=== PATIENT | female | born 1970 | race Caucasian/White ===

== ENCOUNTER 2021-09-05 11:09 | Inpatient (IN) ==
--- NOTE | 2021-08-13 13:45 | PAT Medication Instructions ---
Medication Instructions Date of Service August 13, 2021 Home Medications aspirin 81 mg tablet,delayed release 81 mg PO QAM atorvastatin 80 mg tablet 80 mg PO HS duloxetine 60 mg capsule,delayed release (Cymbalta) 60 mg PO QAM gabapentin 400 mg tablet 400 mg PO TID lactobacillus combination no.4 3 billion cell capsule (Probiotic) 3,000 mmu cells PO QAM metoprolol tartrate 25 mg tablet 25 mg PO BID multivitamin 1 cap PO QAM mupirocin 2 % topical ointment 1 applic TOPICAL UD PRN nitroglycerin 0.4 mg sublingual tablet 0.4 mg SUBLINGUAL UD PRN omeprazole 20 mg capsule,delayed release 20 mg PO QAM sulfamethoxazole 800 mg-trimethoprim 160 mg tablet (Bactrim DS) 1 tab PO BID turmeric 400 mg capsule 500 mg PO QAM Continue as directed nitroglycerin 0.4 mg sublingual tablet 0.4 mg SUBLINGUAL UD PRN (if needed) sulfamethoxazole 800 mg-trimethoprim 160 mg tablet (Bactrim DS) 1 tab PO BID ASK your prescriber and surgeon aspirin 81 mg tablet,delayed release 81 mg PO QAM STOP taking 2 weeks before surgery (or as soon as possible if surgery is within 2 weeks) turmeric 400 mg capsule 500 mg PO QAM STOP taking 24 hours before surgery mupirocin 2 % topical ointment 1 applic TOPICAL UD PRN DO NOT take the morning of surgery lactobacillus combination no.4 3 billion cell capsule (Probiotic) 3,000 mmu cells PO QAM multivitamin 1 cap PO QAM Take morning of surgery With a small sip of water, OTHERWISE NOTHING TO EAT OR DRINK AFTER MIDNIGHT: duloxetine 60 mg capsule,delayed release (Cymbalta) 60 mg PO QAM gabapentin 400 mg tablet 400 mg PO TID metoprolol tartrate 25 mg tablet 25 mg PO BID omeprazole 20 mg capsule,delayed release 20 mg PO QAM Take evening before surgery atorvastatin 80 mg tablet 80 mg PO HS gabapentin 400 mg tablet 400 mg PO TID metoprolol tartrate 25 mg tablet 25 mg PO BID Other Notes If you have any questions please call us at [phone] or [phone] or [phone] or [phone]
--- NOTE | 2021-08-14 13:12 | Anesthesiology Consultation ---
Date of Service August 14, 2021 Assessment & Plan (1) Encounter for pre-operative examination: - cardio 08/09/21 [facility]: "...CAD (CABG x 4 MARKS to LAD, SVG-PDA, SVG to OM and SVG to diag 2011)...doing very well from a cardiac standpoint...able to walk up multiple flights of steps...no further cardiac workup necessary prior to her left shoulder surgery...to continue aspirin..." - COVID screening: Per assessment on 08/14/2021: Travel screen negative, no known COVID-19 positive contacts or current COVID-19 related symptoms in past 2 weeks. Surgeon arranging preop COVID testing, scheduled 09/03/2021. Awaiting results. Chart Review Chart Review: Acceptable Risk for Surgery and Patient seen in Pre Admission Testing Teaching & Discussion Pre-Anesthesia Teaching/Discussion Notes: Instructed NPO after midnight before surgery, except medications with 15 cc of water. Medication instructions provided according to the PAT guidelines. History Surgery Operation Date: 09/05/21 07:30 Proposed Procedures p Left Total Shoulder Arthroplasty, Biceps Tenodesis - Rosendo Kumari MD Height/Weight Height: 5 ft Weight: 90.1 kg Allergies Allergy/AdvReac Type Severity Reaction Status Date / Time Penicillins Allergy Unknown PT NOT SURE Verified 08/13/21 10:57 Medications Home Medications Medication Instructions Recorded Confirmed Last Taken aspirin 81 mg tablet,delayed 81 mg PO QAM 08/13/21 08/13/21 Unknown release atorvastatin 80 mg tablet 80 mg PO HS 08/13/21 08/13/21 Unknown duloxetine 60 mg capsule,delayed 60 mg PO QAM 08/13/21 08/13/21 Unknown release (Cymbalta) gabapentin 400 mg tablet 400 mg PO TID 08/13/21 08/13/21 Unknown lactobacillus combination no.4 3 3,000 mmu cells PO QAM 08/13/21 08/13/21 Unknown billion cell capsule (Probiotic) metoprolol tartrate 25 mg tablet 25 mg PO BID 08/13/21 08/13/21 Unknown multivitamin 1 cap PO QAM 08/13/21 08/13/21 Unknown mupirocin 2 % topical ointment 1 applic TOPICAL UD PRN 08/13/21 08/13/21 Unknown nitroglycerin 0.4 mg sublingual 0.4 mg SUBLINGUAL UD PRN 08/13/21 08/13/21 Unknown tablet omeprazole 20 mg capsule,delayed 20 mg PO QAM 08/13/21 08/13/21 Unknown release sulfamethoxazole 800 1 tab PO BID 08/13/21 08/13/21 Unknown mg-trimethoprim 160 mg tablet (Bactrim DS) turmeric 400 mg capsule 500 mg PO QAM 08/13/21 08/13/21 Unknown Past Medical History Medical History (Updated 08/14/21 @ 13:32 by Drea Aguilar PA-C) Acid reflux controlled, stable per pt Chronic pain Emphysema lung chest CT 07/02/21 Fibromyalgia Forgetfulness NO EVAL FOR THIS ISSUE History of myocardial infarction 2012...BYPASS SX Hyperlipidemia Skin infection ON FACE, CURRENTLY BEING TX WITH ABX AND OINTMENT - HEALING per pt Sleep apnea on CPAP Patient denies h/o stroke, seizures, DM, blood clots or blood transfusions. Exercise / Class Metabolic Activity II 4-5 Yardwork/Stairs/Walk up hill (denies CP or SOB with 1 FOS) Past Family History Family History Mother Family history of diabetes mellitus Grandmother Family history of diabetes mellitus Sister Family history of diabetes mellitus Aunt Family history of diabetes mellitus Past Surgical History Surgical History History of cardiac cath ID 2011 NO STENTS...BYPASS SX History of carpal tunnel release of both wrists History of colonoscopy History of quadruple bypass 2011 Past Anesthesia History No Hx of Anesthesia Complications and No Family Hx of Anesthesia Complications History of PONV No Hx of PONV and No Hx of Motion Sickness Social History Smoking Status: Former smoker tobacco type: cigarettes Do You Dip or Chew Tobacco: No Smoking End Date: 2011 Hx Alcohol Use: Yes Alcohol type: beer, wine and hard liquor alcohol intake frequency: holidays/special occasions only substance use type: marijuana Substance Use Type Other:: MARIJUANA DAILY USE (ADVISED) Last Used Substance: Hours (ago) Review of Systems Patient denies chest pain, shortness of breath, dyspnea on exertion, fever, chills, cough, wheezing, or palpitations. Physical Exam Vital Signs Vitals BP 109/71 P 65 TEMP 98.3 SP02 98% on RA RESP 17 Physical Full cervical extension range of motion without pain TMD 3.5 finger breaths Mallampati Score 2 Dentition: edentulous Lungs: normal respiratory effort. Clear throughout to auscultation, no adventitious breath sounds Cardiac: regular rate and rhythm, no murmurs noted Carotid arteries: negative bruit bilat Skin: small round healing erythematous lesion left axilla with surrounding erythema reduced in area since PCP video visit as no longer extends to lower eyelid; no active drainage or bleeding Lab Results Anesthesia Preop Results Results Anesthesia Widget: WBC 6.14 K/uL (4.8-10.8) 08/14/21 Hgb 13.7 g/dL (12.0-16.0) 08/14/21 Hct 40.2 % (37-47) 08/14/21 Plt 347 K/uL (130-400) 08/14/21 Na 137 mmol/L (136-145) 08/14/21 K 3.8 mmol/L (3.5-5.1) 08/14/21 Cl 102 mmol/L (98-107) 08/14/21 CO2 27 mmol/L (21-32) 08/14/21 BUN 13 mg/dl (6-23) 08/14/21 Creat 1.09 mg/dl (0.6-1.2) 08/14/21 Glucose Level 84 mg/dl (70-99(Fasting)) 08/14/21 PT 9.7 Seconds (9.0-12.0) 08/14/21 PTT 25.3 Seconds (21.0-31.0) 08/14/21 INR 0.9 (0.9-1.1) 08/14/21 HA1c 5.8 % (4.5-5.6) H 08/14/21 Urine Color Yellow 08/14/21 Urine Appearance Clear (Clear) 08/14/21 Urine pH 5.5 (4.5-7.5) 08/14/21 Urine Specific [place] 1.014 (1.000-1.030) 08/14/21 Urine Protein Negative (Negative) 08/14/21 Urine Glucose (UA) Negative (Negative) 08/14/21 Urine Ketones Negative (Negative) 08/14/21 Urine Blood Negative (Negative) 08/14/21 Urine Nitrite Negative (Negative) 08/14/21 Urine Bilirubin Negative (Negative) 08/14/21 Urine Urobilinogen Negative (Negative) 08/14/21 Urine Leukocyte Esterase Negative (Negative) 08/14/21 Blood Type A Negative 08/14/21 Antibody Screen NEGATIVE 08/14/21 Testing Electrocardiogram Date: 08/09/21 Sinus bradycardia, rate 55 bpm Chest X-Ray Date: 08/14/21 No acute chest disease Echocardiogram Date: 01/13/19 EF 55-60% Grade II diastolic dysfunction No regional wall motion abnormalities of LV Mild mitral valve regurgitation Other Testing Chest CT 07/02/21 4 mm solid juxtapleural nodule left upper lobe Mild emphysema Diffuse bronchial wall thickening typical of chronic bronchitis Heavy atherosclerotic calcification of the [place] coronary arteries status post multivessel CABG Healed median sternotomy Mild degenerative endplate changes in the spine
--- NOTE | 2021-09-01 08:35 | History & Physical Report ---
Date of Service September 01, 2021 Assessment & Plan (1) Primary osteoarthritis, left shoulder: Plan: Treatment options discussed with the patient. She has failed conservative measures. Recommend proceeding with surgical intervention. Risks, benefits and alternatives to surgery including but not limited to infection, DVT, pain, stiffness, need for revision surgery, damage to blood vessels, damage to nerves, PE, , were discussed with the patient and they wish to proceed. Plan for left total shoulder arthroplasty scheduled for September 05, [address] [facility] with Dr. Kumari. All questions answered. We will plan on outpatient postop. Follow-up postoperatively. History of Present Illness Chief Complaint: Left shoulder pain Primary Care Provider: Jovanny Awad PA-C 51-year-old female with past medical history significant for SC status post bypass surgery, coronary artery disease, MACK, GERD, emphysema who presents with ongoing left shoulder pain. Patient has failed conservative measures including injections and anti-inflammatories. Pain is interfering with her daily activities. She would like to proceed with surgical intervention. Patient denies headaches, sweats, fevers, chills, double vision, blurred vision, cough, sore throat, dysphagia, chest pain, sob, wheezing, n/v/d/c, numbness, tingling, fatigue, urinary symptoms, mood disorders. ROS positive for left shoulder pain and stiffness. Allergies Allergy/AdvReac Type Severity Reaction Status Date / Time Penicillins Allergy Unknown PT NOT SURE Verified 08/13/21 10:57 Home Medications Medication Instructions Recorded Confirmed Type aspirin 81 mg tablet,delayed 81 mg PO QAM 08/13/21 08/13/21 History release atorvastatin 80 mg tablet 80 mg PO HS 08/13/21 08/13/21 History duloxetine 60 mg capsule,delayed 60 mg PO QAM 08/13/21 08/13/21 History release (Cymbalta) gabapentin 400 mg tablet 400 mg PO TID 08/13/21 08/13/21 History lactobacillus combination no.4 3 3,000 mmu cells PO QAM 08/13/21 08/13/21 History billion cell capsule (Probiotic) metoprolol tartrate 25 mg tablet 25 mg PO BID 08/13/21 08/13/21 History multivitamin 1 cap PO QAM 08/13/21 08/13/21 History mupirocin 2 % topical ointment 1 applic TOPICAL UD PRN 08/13/21 08/13/21 History nitroglycerin 0.4 mg sublingual 0.4 mg SUBLINGUAL UD PRN 08/13/21 08/13/21 History tablet omeprazole 20 mg capsule,delayed 20 mg PO QAM 08/13/21 08/13/21 History release sulfamethoxazole 800 1 tab PO BID 08/13/21 08/13/21 History mg-trimethoprim 160 mg tablet (Bactrim DS) turmeric 400 mg capsule 500 mg PO QAM 08/13/21 08/13/21 History Past Med/Surg History Medical History (Updated 09/01/21 @ 08:34 by Kiran Gonzalez PA-C) Acid reflux controlled, stable per pt Chronic pain Emphysema lung chest CT 07/02/21 Fibromyalgia Forgetfulness NO EVAL FOR THIS ISSUE History of myocardial infarction 2012...BYPASS SX Hyperlipidemia Skin infection ON FACE, CURRENTLY BEING TX WITH ABX AND OINTMENT - HEALING per pt Sleep apnea on CPAP Surgical History History of cardiac cath SC 2012 NO STENTS...BYPASS SX History of carpal tunnel release of both wrists History of colonoscopy History of quadruple bypass 2011 Family History Mother Family history of diabetes mellitus Grandmother Family history of diabetes mellitus Sister Family history of diabetes mellitus Aunt Family history of diabetes mellitus Social History Smoking Status: Former smoker Hx Alcohol Use: Yes Alcohol type: beer, wine and hard liquor Preferred Language: Polish Communication Ability: Effective Steam Drier Operator Required: No Beliefs That Will Affect Care: None Current Living Situation: Spouse and Family Current Living Situation Comment: 9 TOTAL CHILDREN, GRANDCHILDREN, PETS Feels Safe at Home: Yes Assistive Devices: Denture - Upper, Denture - Lower and Glasses Review of Systems All systems reviewed & are unremarkable except as noted in HPI & below Physical Exam Constitutional: well developed and well nourished; no acute distress Eyes: PERRL, conjunctivae normal, anicteric sclerae ENMT: external ear and nose normal, oropharynx normal Neck: trachea midline, no thyromegaly Respiratory: normal respiratory effort, lungs clear to auscultation Cardiovascular: RRR, no murmur, no edema Musculoskeletal: Left shoulder: Tenderness anterior glenoid and biceps. There is crepitation noted. She has positive impingement signs, positive cross body test. Active abduction to 170 degrees, forward flexion to 170 degrees, external rotation is 60 degrees. Pain and weakness with strength testing. Skin: no rashes, warm and dry Neurologic: patellar DTR's 2+ bilat, sensation intact Psychiatric: A+Ox3, euthymic affect Results & Data ([facility]) Diagnostic Findings Left shoulder radiographs demonstrate significant joint space narrowing glenohumeral joint with complete loss of joint space inferior glenohumeral joint. Her MRI demonstrates grade 4 osteoarthritis inferior glenohumeral joint, subchondral cystic changes in the glenoid. Rotator cuff is intact.
[~2021-09-05 11:09] MED LIST: ACETAMINOPHEN 500 MG TAB PO SCH; BUPIVACAINE 0.5 % 5 MG/1 ML PF 10ML VIAL ONE; CeleBREX 200 MG CAP PO SCH; FAMOTIDINE 20 MG TAB PO SCH; GABAPENTIN 900 MG DOSE PO SCH; LR 15ML/HR IV SCH; METOCLOPRAMIDE HCL 10 MG TABLET PO SCH; TRANEXAMIC ACID 1,000 MG **IV Intra-op IV SCH; TRANEXAMIC ACID 1,000 MG **IV Pre-op IV SCH; VANCOMYCIN HCL 1,250 MG in SODIUM CHLORIDE 0.9% 250 ML IV SCH; dexAMETHasone 4 MG TAB PO SCH
--- NOTE | 2021-09-05 13:04 | History & Physical Bridge Note ---
Date of Service September 05, 2021 History & Physical Bridge Note I have examined the patient, reviewed the History & Physical and in the interval since the performance of the History & Physical I have noted the following changes of clinical significance: no changes noted
[2021-09-05] MEDS ORDERED: HYDROmorphone INJ 2 MG/ML SYR/VIAL IV PRN (13:19)
[2021-09-05] MEDS ORDERED: ONDANSETRON INJ 2 MG/ML 2 ML VIAL IV PRN ×2 (13:19→18:16)
[2021-09-05] MEDS ORDERED: ATROPINE SULFATE 0.1 MG/ML 10ML SYR IV PRN (13:19)
[2021-09-05] MEDS ORDERED: ePHEDrine sulfate 50 MG/ML AMP IV PRN (13:19)
[2021-09-05] MEDS ORDERED: GABAPENTIN 300 MG CAP PO ONE (13:20)
[2021-09-05] MEDS ORDERED: ceFAZolin 330 MG/ML 1 GM VIAL ONE (13:48)
[2021-09-05] MEDS ORDERED: EpINEphrine HCL INJ 1 MG/ML 1ML SYRINGE ONE (13:49)
[2021-09-05] MEDS ORDERED: DEXAMETHASONE SOD INJ 4 MG/ML VIAL ONE (13:55)
[2021-09-05] MEDS ORDERED: ROCURONIUM BROMIDE 10 MG/ML 5 ML VIAL IV ONE ×2 (13:55→15:00)
[2021-09-05] MEDS ORDERED: MIDAZOLAM HCL 1 MG/ML 2ML VIAL ONE (13:55)
[2021-09-05] MEDS ORDERED: fentaNYL citrate 100 MCG/2 ML VIAL ONE (13:55)
[2021-09-05] MEDS ORDERED: PROPOFOL IV EMULSION 10 MG/ML 20 ML VIAL IV ONE ×2 (13:55→16:02)
[2021-09-05] MEDS ORDERED: ONDANSETRON INJ 2 MG/ML 2 ML VIAL ONE (13:55)
[2021-09-05] MEDS ORDERED: KETAMINE 50 MG/5 ML SYRINGE ONE (14:18)
[2021-09-05] MEDS ORDERED: GLYCOPYRROLATE 0.2 MG/ML VIAL ONE ×2 (15:00→17:07)
[2021-09-05] MEDS ORDERED: NEOSTIGMINE METHYLSULFATE 1 MG/ML 10ML VIAL ONE (17:07)
--- NOTE | 2021-09-05 17:07 | Post Operative Brief Note ---
Immediate Post Op Note v1 Date of Surgery September 05, 2021 Pre & Post Diagnosis Operation Date: 09/05/21 14:15 Pre-Op Diagnosis: Primary osteoarthritis, left shoulder, obesity BMI 38.1 Post-Op Diagnosis: Primary osteoarthritis, left shoulder, , biceps tenosynovitis, obesity BMI 38.1 I identified the patient and participated in the time-out.: Yes Procedure Operation Date: 09/05/21 14:15 Actual Procedures p Left Total Shoulder Arthroplasty, Biceps Tenodesis - Rosendo Kumari MD Surgeon Rosendo Kumari MD Nurse Staff Brandon MATHIS Estimated Blood Loss 35 Findings Consistent with Post-Op Diagnosis Specimens Humeral head Drains Hemovac Drain Anesthesia Type General Regional Complications none Disposition Disposition: Recovery Room Overlapping Procedure I was immediately available: during the entire case.
--- NOTE | 2021-09-05 17:19 | Operative Report ---
Post Operative Report Pre & Post Diagnosis Operation Date: 09/05/21 14:15 Pre-Op Diagnosis: Primary osteoarthritis, left shoulder Post-Op Diagnosis: Primary osteoarthritis, left shoulder, , biceps tenosynovitis I identified the patient and participated in the time-out.: Yes Procedure Operation Date: 09/05/21 14:15 Actual Procedures p Left Total Shoulder Arthroplasty, Biceps Tenodesis - Rosendo Kumari MD Surgeon Rosendo Kumari MD Automation Architect Brandon MATHIS Estimated Blood Loss 35 Findings Consistent with Post-Op Diagnosis Specimens Humeral head Drains 2 Hemovac Anesthesia Type General Regional Complications none Disposition Disposition: Recovery Room Indications 51-year-old female with chronic left shoulder pain failed conservative management with radiographs demonstrating type a wear [id number] glenohumeral joint grade 4 osteoarthritis inferior humeral osteophytes which are moderate Description of Procedure The patient was taken to the operating room and anesthetized under a general and regional block anesthesia. A towel roll was placed under the medial border of the scapula of the left shoulder. The patient's head was placed on a foam headrest and protective eyewear was placed and the extremities were well padded. The arm was draped free in order to manipulate the shoulder as necessary. The shoulder exam demonstrated she had an obese arm and chest area. There was 150 degrees forward flexion 90 degrees abduction 45 degrees external rotation 70 degrees internal rotation with [id number] crepitation. The left shoulder was sterilely prepped and draped in the usual sterile fashion. An anterior deltopectoral approach was performed. A longitudinal incision was made in the interval. The skin was incised sharply and subcutaneous tissues dissected down to the fascia. The cephalic vein was identified and retracted laterally with the deltoid. Any crossing veins were tied off with silk ties and divided. The clavipectoral fascia was divided at the lateral margin of the conjoined tendon and divided up to the level of the coracoacromial ligament which was preserved. The upper 1 cm of the pectoralis was released for inferior exposure. The biceps tendon findings demonstrated marked biceps tenosynovitis with a thickened chronic tenosynovitis around the biceps tendon extending up in the bicipital groove. the rotator cuff tendon findings demonstrated intact rotator cuff. The circumflex vessels were identified and tied off with silk ties and divided laterally. The fibers and subscapularis were split longitudinally at the level of the circumflex vessels down to the capsule and then reflected off the inferior capsule using a Kitner elevator. The axillary nerve was identified with a tug test and protected with a blunt Chichi retractor. The rotator interval was opened up and extended down to the glenoid. The biceps tendon was identified and tenodesed to the pectoralis tendon with [id number] #2 FiberWire sutures in the proximal biceps was resected. The subscapularis tendon was taken down with a trans-tendinous incision leaving a cuff of tissue for repair on the lesser tuberosity. The incision was carried down to the tendon and the capsule and a #1 Vicryl suture was placed into the free end of the subscapularis tendon. The capsule was subperiosteally dissected off the i nferior neck of the humerus exposing the humeral osteophytes which demonstrated a rim of inferior humeral osteophytes which were small to moderate. The osteophytes were excised with an artist chisel and a rongeur. The capsular release along the inferior neck of the humerus was completed. The humerus was then retracted posterior to the glenoid with a Fukuda retractor. The remainder of the biceps tendon and labrum was resected. The glenoid findings demonstrated grade 4 osteoarthritis of the anterior-inferior glenoid with exposed bone on the glenoid. Intra-articular biceps tendon was widened due to chronic tendinopathy. I did an anterior inferior and posterior inferior release with electrocautery on bone and a Nazario elevator with the axillary nerve continuing to be protected with the blunt Hohmann retractor inferiorly. When the releases were completed and the humeral head was exposed with some extension and external rotation and in anatomic head cut was made using the oscillating saw. The Tornier simplicity total shoulder arthroplasty was used including the Cortiloc glenoid component. An anatomic neck cut was made removing the articular surface of the humerus. The central drill pin was placed and the surface reamer was used followed by the reamer for the nucleus. The humerus was small and sized for a size 1 nucleus. The trial nucleus and subsequent cut protector was placed. The humerus was then retracted posterior to the glenoid using a Bankart retractor anteriorly and blunt Chichi and posterior Tornier glenoid retractor. A central drill hole was made into the glenoid. The glenoid was sized for a size Cortiloc small 30 radius component. The glenoid was reamed and the central drill widened and the guide for the 3 peripheral peg holes was placed in the peg holes were drilled and a trial component was placed with a tight fit. The trial was removed and the glenoid was irrigated with pulsatile lavage antibiotic solution and the drill holes were dried and packed with epinephrine-soaked tampons for hemostasis. The [place] G cement was vacuum mixed. The final component was cemented into position and held in position with pressure until the cement cured. A humeral head trial size 46 x 17 simplicity trial head was placed. A trial reduction was performed and the shoulder was stable. The trial was removed and the humerus was irrigated with pulsatile saline solution. 3 drill holes were made into the hard bone in the bicipital groove lateral to the lesser tuberosity and 3 #5 FiberWire transosseous sutures were placed for repair of the subscapularis. After further irrigation the final components were inserted by first inserting the #1 nucleus leaving it slightly proud and then placing the 46 x 17 simplicity head onto the nucleus and then both were impacted until a tight press-fit . The humerus was reduced to the glenoid and stability verified. The subscapularis was repaired with the #5 FiberWire sutures in a Rajat-Nick suture technique and lateral row fixation with [id number] #2 FiberWire in the soft tissue. The rotator interval was closed and maximal external rotation. The pectoralis was then closed with [id number] #2 FiberWire suture. The sutures were passed through the biceps tendon as well to reinforce the biceps tenodesis. 2 Hemovac drains were placed. The deltopectoral interval was closed with [id number] #1 Vicryl sutures. The subcutaneous tissues were closed with interrupted 2-0 Vicryl and the skin was closed with pebbles and a sterile dressing was applied. The patient tolerated the procedure well. Brandon MATHIS, my physician assistant customer service manager, participated as nurse first assist and assisted in all aspects of the procedure. He assisted in soft tissue retraction instrument management suture management and assisted in the subcutaneous and skin closure and will participate in the postoperative care the patient. I attest to the content of the Intraoperative Record and any orders documented therein. Any exceptions are noted below.
--- NOTE | 2021-09-05 17:40 | XRay Report ---
LEFT SHOULDER 2 VIEWS CLINICAL HISTORY: Postoperative examination. FINDINGS: 2 portable views of the left shoulder are obtained. No prior studies are available for mary souza at the time of dictation. A left shoulder arthroplasty is in near-anatomic alignment. No acute fracture is seen. Skin clips, soft tissue edema, subcutaneous gas, and a surgical drain overlying th e left shoulder are expected postoperative findings. The acromioclavicular joint is maintained. Midli ne sternotomy wires are noted. Visualized left lung parenchyma appears clear. IMPRESSION: Expected postoperative findings status post left shoulder arthroplasty. No acute fracture is seen. Electronically signed by: Billy Duffy M.D. 09/05/2021 5:39 PM
--- NOTE | 2021-09-05 17:56 | Anesthesiology Progress Note ---
Date of Service September 05, 2021 Anesthesia Post Procedure Vital Signs Vital Signs: Temp Pulse Pulse Resp BP Pulse Ox 09/05/21 17:45 36.4 C L 68 17 150/79 H 93 09/05/21 17:35 83 12 153/84 H 96 09/05/21 17:25 76 21 134/73 97 09/05/21 17:17 36.5 C 93 H 19 148/88 H 95 09/05/21 11:54 36.9 C 64 20 128/65 97 Pain Intensity Bilateral Medial Chest: Pain Intensity: 10 Transfer of Care Handoff Completed per policy Notes Mental Status: alert / awake / arousable Patient Amnestic to Procedure: Yes Nausea / Vomiting: adequately controlled Pain: adequately controlled Airway Patency, RR, SpO2: stable & adequate BP & HR: stable & adequate Hydration State: stable & adequate Anesthetic Complications: no major complications apparent
[2021-09-05] MEDS ORDERED: VANCOMYCIN CONSULT ACTIVE PRN (18:16)
[2021-09-05] MEDS ORDERED: NALOXONE HCL 0.4 MG/1 ML VIAL/CARP IV PRN (18:16)
[2021-09-05] MEDS ORDERED: HYDROmorphone INJ 0.5 MG/0.5 ML SYR IV PRN (18:16)
[2021-09-05] MEDS ORDERED: MAGNESIUM HYDROXIDE SUSP 30 ML UDC PO PRN (18:16)
[2021-09-05] MEDS ORDERED: bisacodyL 10 MG SUPP PR PRN (18:16)
[2021-09-05] MEDS ORDERED: NITROGLYCERIN SL 0.4 MG/TAB TAB SL PRN (18:16)
[2021-09-05] MEDS ORDERED: oxyCODONE HCL IR 5 MG TAB (IMMEDIATE RELEASE) PO PRN (18:16)
[2021-09-05] MEDS: SODIUM CHLORIDE 0.9% 1000ML 1,000 ML IV SCH (18:43)
--- NOTE | 2021-09-05 19:30 | Consultation ---
Date of Consultation September 05, 2021 Assessment & Plan (1) Status post total replacement of left shoulder: Post op day# 0 S/P left total shoulder arthroplasty by Dr Kenyetta AMIN#35ml -pain management per ortho -wound management per ortho -PT/OT as appropriate -DVT prophylaxis per ortho -incentive spirometry -monitor H&H for acute blood loss anemia; pre-op Hgb: 13.7 (2) CAD (coronary artery disease): S/P CABG Denies CP, SOB -Continue aspirin, metoprolol tartrate, atorvastatin (3) HTN (hypertension): - Continue metoprolol tartrate (4) Hyperlipidemia: - Continue atorvastatin (5) GERD (gastroesophageal reflux disease): - Continue PPI (6) Anxiety: - Continue duloxetine (7) Sleep apnea: - CPAP at bedtime DVT Prophylaxis -SCDs Disposition per primary service Follows with Jovanny Awad PA-C for routine care Pt was seen and care coordinated with Dr Flaherty. See addendum Thank you for this consultation. We will follow the patient with you during their hospital stay. You can reach a [facility] of [facility] via [facility] Supervising Physician Co-Signing Physician Notes 51-year-old lady with PMH of HTN, HLD, CAD s/p CABG, GERD, anxiety is status post left total shoulder replacement today, is a medical consult. Patient was doing well, on room air, pain under control. Pain management/PT OT/DVT prophylaxis per primary team. Incentive spirometer. Hemoglobin in a.m., monitor for ABL anemia. Upon examination: GENERAL: Alert and oriented x3. NAD, on RA. HEENT: No pallor, no icterus. Pupils equal, round and reactive to light. Oral mucosa moist. NECK: No JVD, no neck masses. HEART: S1 and S2 heard. Regular rate and rhythm. No murmur, no gallop. RESPIRATORY SYSTEM: Normal AP diameter. No accessory muscle use. No wheezing, no crackles. ABDOMEN: Soft, bowel sounds present, nontender, no distention. CENTRAL NERVOUS SYSTEM: No facial droop. Speech is clear. Obeys simple commands. Moves extremities. EXTREMITIES: No edema, no erythema seen. Lt shoulder w/ clean dressing, hemovac in place. I have seen and examined the patient and have discussed the case with the provider above. I agree with the assessment and plan as stated. History of Present Illness Requesting Physician: Dr Kumari Reason for Consultation: Postop medical management Attending Physician: Rosendo Kumari MD History of Present Illness Patient is 51-year-old female with PMH HTN, HLD, CAD s/p CABG, GERD, anxiety seen in medical consultation s/p left total shoulder today by Dr. Kumari. Post op patient reports minimal pain. Denies nausea, vomiting, chest pain, shortness of breath. 8 some dinner without difficulty. Denies fever/chills, BOYD, dizziness, syncope, vision changes, neck pain, CP, SOB, cough, sore throat, abdominal pain, paresthesias, extremity edema, rashes, urinary symptoms. Allergies Allergy/AdvReac Type Severity Reaction Status Date / Time Penicillins Allergy Unknown PT NOT SURE Verified 09/05/21 11:45 Home Medications Medication Instructions Recorded Confirmed Type aspirin 81 mg tablet,delayed 81 mg PO QAM 08/13/21 08/13/21 History release atorvastatin 80 mg tablet (Lipitor) 80 mg PO HS 08/13/21 09/05/21 History duloxetine 60 mg capsule,delayed 60 mg PO QAM 08/13/21 08/13/21 History release (Cymbalta) gabapentin 400 mg tablet 400 mg PO TID 08/13/21 08/13/21 History lactobacillus combination no.4 3 3,000 mmu cells PO QAM 08/13/21 09/05/21 History billion cell capsule (Probiotic) metoprolol tartrate 25 mg tablet 25 mg PO BID 08/13/21 08/13/21 History multivitamin 1 cap PO QAM 08/13/21 08/13/21 History mupirocin 2 % topical ointment 1 applic TOPICAL UD PRN 08/13/21 09/05/21 History nitroglycerin 0.4 mg sublingual 0.4 mg SUBLINGUAL UD PRN 08/13/21 09/05/21 History tablet omeprazole 20 mg capsule,delayed 20 mg PO QAM 08/13/21 08/13/21 History release turmeric 400 mg capsule 500 mg PO QAM 08/13/21 09/05/21 History Patient History Medical History (Updated 09/05/21 @ 19:33 by Kisha Chatman PA-C) Acid reflux controlled, stable per pt CAD (coronary artery disease) Chronic pain Emphysema lung chest CT 07/02/21 Fibromyalgia Forgetfulness NO EVAL FOR THIS ISSUE History of myocardial infarction 2012...BYPASS SX HTN (hypertension) Hyperlipidemia Skin infection ON FACE, CURRENTLY BEING TX WITH ABX AND OINTMENT - HEALING per pt Sleep apnea on CPAP Surgical History (Updated 09/05/21 @ 19:32 by Kisha Chatman PA-C) History of cardiac cath [place] 2012 NO STENTS...BYPASS SX History of carpal tunnel release of both wrists History of colonoscopy History of quadruple bypass 2012 Hx of vaginal hysterectomy both ovaries remain Status post total replacement of left shoulder 09/05/21. Dr Kumari Family History Mother Family history of diabetes mellitus Grandmother Family history of diabetes mellitus Sister Family history of diabetes mellitus Aunt Family history of diabetes mellitus Social History Smoking Status: Former smoker Smoking End Date: 2011; Do You Dip or Chew Tobacco: No; Hx Alcohol Use: Yes Alcohol type: beer, wine and hard liquor Alcohol Intake Frequency: Monthly or Less Hx Substance Use: Yes Last Used Substance: Hours (ago) Substance Use Type Other:: MARIJUANA DAILY USE (ADVISED) Preferred Language: Armenian Communication Ability: Effective Locomotive Firer Required: No Beliefs That Will Affect Care: None marital status: Current Living Situation: Spouse and Family Current Living Situation Comment: 6 TOTAL CHILDREN, GRANDCHILDREN, PETS Other Information That Helps Us Care for You: No Feels Safe at Home: Yes Safety Concerns: Feels Safe At This Time Dental Care, Regularly: No Seatbelt Use: always Assistive Devices: Denture - Upper, Denture - Lower and Glasses Review of Systems Review of Systems: All systems reviewed & are unremarkable except as noted in HPI & below Physical Exam Physical Exam: General: no distress, obese Head: normocephalic, atraumatic Eyes: conjunctiva non-injected, anicteric ENT: normal inspection external ears, nose, mucous membranes moist Neck: supple, trachea midline Lungs: clear, no respiratory distress, no wheezing/rhonchi/rales CV: RRR, no murmur, no pretibial edema Abd: normal BS, soft, non-tender Ext: no calf tenderness; LUE: +surgical dressing in place is dry, arm in sling, sensation to light touch of fingers intact. +Hemovac in place with small amount serosanguineous drainage Neuro: A&O x 3, no focal deficits noted, normal affect Skin: warm, dry Results & Data ([facility]) Vital Signs (Past 12 Hours) Vital Signs Temp Pulse Pulse Resp BP Pulse Ox 09/05/21 19:13 36.5 C 65 16 133/85 93 09/05/21 18:44 35.9 C L 50 L 14 121/69 93 09/05/21 17:55 57 L 14 151/73 H 95 09/05/21 17:45 36.4 C L 68 17 150/79 H 93 09/05/21 17:35 83 12 153/84 H 96 09/05/21 17:25 76 21 134/73 97 09/05/21 17:17 36.5 C 93 H 19 148/88 H 95 09/05/21 11:54 36.9 C 64 20 128/65 97
[2021-09-05] MEDS: DOCUSATE SODIUM 100 MG CAP PO SCH (20:33)
[2021-09-05] MEDS: METOPROLOL TARTRATE 25 MG TAB PO SCH (20:33)
[2021-09-05] MEDS: GABAPENTIN 400 MG CAP PO SCH (20:34)
[2021-09-05] MEDS: ACETAMINOPHEN 500 MG TAB PO SCH (20:41)
[2021-09-05] MEDS ORDERED: ATORVASTATIN 40 MG TAB PO SCH (21:00)
[2021-09-05] MEDS ORDERED: SENNA 8.6 MG TAB PO SCH (21:00)
[2021-09-06] MEDS ORDERED: VANCOMYCIN HCL 1,250 MG in SODIUM CHLORIDE 0.9% 250 ML IV SCH (03:15)
[2021-09-06] MEDS: SODIUM CHLORIDE 0.9% 1000ML 1,000 ML IV SCH (05:26)
[2021-09-06] MEDS: ACETAMINOPHEN 500 MG TAB PO SCH (06:09)
[2021-09-06 06:32] LABS: Basophils # (auto) 0.01 K/uL (0-0.2); Basophils % (auto) 0.1 %; Hematocrit (blood only) 40.6 % (37-47); Hemoglobin 13.7 g/dL (12.0-16.0); Immature Granulocytes # (auto) 0.04 K/uL (0.00-0.02); Immature Granulocytes % (auto) 0.3 %; Lymphocytes # (auto) 1.27 K/uL (1.2-3.4); Lymphocytes % (auto) 9.6 %; Mean Corpuscular Hemoglobin 29.7 pg (25-34); Mean Corpuscular Hgb Conc 33.7 g/dL (32-36); Mean Corpuscular Volume 88.1 fL (80-100); Mean Platelet Volume 9.8 fL (7.4-10.4); Monocytes # (auto) 0.63 K/uL (0.11-0.59); Monocytes % (auto) 4.8 %; Neutrophils # (auto) 11.25 K/uL (1.4-6.5); Neutrophils % (auto) 85.2 %; Platelet Count 363 K/uL (130-400); RDW Coefficient of Variation 13.3 % (11.5-14.5); RDW Standard Deviation 43.1 fL (36.4-46.3); Red Blood Count 4.61 M/uL (4.2-5.4)
[2021-09-06 07:11] LABS: BUN Creatinine Ratio 14.3 (10-20); Calcium 9.5 mg/dl (8.5-10.1); Creatinine Clr Calc Pharmacy 77.5 ml/min; Est GFR (African American) 92.6 ml/min; Est GFR (Non-African American) 79.9 ml/min; Potassium 3.8 mmol/L (3.5-5.1)
--- NOTE | 2021-09-06 08:29 | Orthopedic Progress Note ---
Date of Service September 06, 2021 Assessment & Plan (1) Primary osteoarthritis, left shoulder: Plan: Postop day 1 status post left total shoulder arthroplasty. PT/OT protocols. Nonweightbearing left upper extremity. DVT prophylaxis-aspirin p.o. daily, SCDs Pain management as written. DC planning-patient is planning for outpatient PT upon discharge. Plan for discharge to home today. Admission and Anticipated Discharge Date Admission Date: September 05, 2021 Subjective POD 1 Patient sitting up at the bedside. No complaints this morning. Pain is controlled. Denies shortness of breath, chest pain, lightheadedness. She is hoping to go home today. Physical Exam Physical Exam: Sling is in place. Dressings are clean, dry, and intact. She has good range of motion of her left wrist and fingers. She has some slight tingling left in her fingers at this time but states most of the sensation has returned to her fingers. Capillary refill is less than 2 seconds. Minimal drainage from the Hemovac. Results & Data ([facility]) Vital Signs (Past 12 Hours) Vital Signs Temp Pulse Resp BP Pulse Ox 09/06/21 06:37 36.9 C 55 L 16 111/69 97 09/06/21 02:48 36.9 C 78 16 110/74 95 09/05/21 21:58 36.4 C L 53 L 16 140/81 95 Laboratory Results Laboratory Results WBC 13.20 K/uL (4.8-10.8) H 09/06/21 06:00 RBC 4.61 M/uL (4.2-5.4) 09/06/21 06:00 Hgb 13.7 g/dL (12.0-16.0) 09/06/21 06:00 Hct 40.6 % (37-47) 09/06/21 06:00 MCV 88.1 fL (80-100) 09/06/21 06:00 MCH 29.7 pg (25-34) 09/06/21 06:00 MCHC 33.7 g/dL (32-36) 09/06/21 06:00 RDW Std Deviation 43.1 fL (36.4-46.3) 09/06/21 06:00 RDW Coeff of Pete 13.3 % (11.5-14.5) 09/06/21 06:00 Plt Count 363 K/uL (130-400) 09/06/21 06:00 MPV 9.8 fL (7.4-10.4) 09/06/21 06:00 Immature Gran % (Auto) 0.3 % 09/06/21 06:00 Neut % (Auto) 85.2 % 09/06/21 06:00 Lymph % (Auto) 9.6 % 09/06/21 06:00 [place] % (Auto) 4.8 % 09/06/21 06:00 Eos % (Auto) 0.0 % 09/06/21 06:00 Baso % (Auto) 0.1 % 09/06/21 06:00 Neut # (Auto) 11.25 K/uL (1.4-6.5) H 09/06/21 06:00 Lymph # (Auto) 1.27 K/uL (1.2-3.4) 09/06/21 06:00 [place] # (Auto) 0.63 K/uL (0.11-0.59) H 09/06/21 06:00 Eos # (Auto) 0.00 K/uL (0-0.5) 09/06/21 06:00 Baso # (Auto) 0.01 K/uL (0-0.2) 09/06/21 06:00 Immature Gran # (Auto) 0.04 K/uL (0.00-0.02) H 09/06/21 06:00 Sodium 138 mmol/L (136-145) 09/06/21 06:00 Potassium 3.8 mmol/L (3.5-5.1) 09/06/21 06:00 Chloride 104 mmol/L (98-107) 09/06/21 06:00 Carbon Dioxide 27 mmol/L (21-32) 09/06/21 06:00 Anion Gap 7 (3-11) 09/06/21 06:00 BUN 12 mg/dl (6-23) 09/06/21 06:00 Creatinine 0.84 mg/dl (0.6-1.2) 09/06/21 06:00 Est Cr Clr Drug Dosing 77.5 ml/min 09/06/21 06:00 Est GFR ( Amer) 92.6 ml/min 09/06/21 06:00 Est GFR (Non-Af Amer) 79.9 ml/min 09/06/21 06:00 BUN/Creatinine Ratio 14.3 (10-20) 09/06/21 06:00 Glucose 119 mg/dl (70-99(Fasting)) H 09/06/21 06:00 Calcium 9.5 mg/dl (8.5-10.1) 09/06/21 06:00 SARS-CoV-2, RNA, NAAT NEGATIVE (NEGATIVE) 09/05/21 11:29 Impressions Shoulder X-Ray 09/05/21 17:20 LEFT SHOULDER 2 VIEWS CLINICAL HISTORY: Postoperative examination. FINDINGS: 2 portable views of the left shoulder are obtained. No prior studies are available for comparison at the time of dictation. A left shoulder arthroplasty is in near-anatomic alignment. No acute fracture is seen. Skin clips, soft tissue edema, subcutaneous gas, and a surgical drain overlying the left shoulder are expected postoperative findings. The acromioclavicular joint is maintained. Midline sternotomy wires are noted. Visualized left lung parenchyma appears clear. IMPRESSION: Expected postoperative findings status post left shoulder arthroplasty. No acute fracture is seen. Electronically signed by: Billy Duffy M.D. 09/05/2021 5:39 PM
[2021-09-06] MEDS: GABAPENTIN 400 MG CAP PO SCH (08:40)
[2021-09-06] MEDS: DOCUSATE SODIUM 100 MG CAP PO SCH (08:40)
[2021-09-06] MEDS: METOPROLOL TARTRATE 25 MG TAB PO SCH (08:40)
[2021-09-06] MEDS ORDERED: DULoxetine HCL 60 MG CAP PO SCH (09:00)
[2021-09-06] MEDS ORDERED: NON-FORMULARY MEDICATION (Lactobacillus Combination No.4 [Probiotic] 3 billion cell Capsul PO SCH (09:00)
[2021-09-06] MEDS ORDERED: ASPIRIN 81 MG ECTAB PO SCH (09:00)
[2021-09-06] MEDS ORDERED: MULTIVITAMIN TAB PO SCH (09:00)
[2021-09-06] MEDS ORDERED: PANTOprazole 40 MG TAB PO SCH (09:00)
--- NOTE | 2021-09-06 11:39 | Hospitalist Progress Note ---
Date of Service September 06, 2021 Assessment & Plan (1) Status post total replacement of left shoulder: Plan: Post op day# 1 S/P left total shoulder arthroplasty by Dr Kumari further management per ortho (2) CAD (coronary artery disease): Plan: S/P CABG Denies CP, SOB -Continue aspirin, metoprolol tartrate, atorvastatin (3) HTN (hypertension): Plan: - Continue metoprolol tartrate (4) Hyperlipidemia: Plan: - Continue atorvastatin (5) GERD (gastroesophageal reflux disease): Plan: - Continue PPI (6) Anxiety: Plan: - Continue duloxetine (7) Sleep apnea: Plan: - CPAP at bedtime Plan: Stable for discharge from hospitalist perspective. Dispo per primary team. Admission and Anticipated Discharge Date Admission Date: September 05, 2021 Subjective Sitting comfortably in bed. Dressed up and ready for discharge home. Denies any needs. Pain is controlled. Tolerating oral intake well. Voiding without issues. Passing gas, no BM yet. Physical Exam Physical Exam: General: Sitting comfortably in bed, not in distress, on room air Chest: Clear breath sounds bilaterally, no wheezes or crackles CVS: Regular rate and rhythm, normal heart sounds, no murmur Abdomen: Soft, non tender, not distended, normal bowel sounds Neuro: Awake, alert, oriented, conversing well, non focal Extremities: LUE in sling. Hemovac suction in place. Results & Data Results & Data ([facility]) Vital Signs (Past 12 Hours) Vital Signs Temp Pulse Resp BP Pulse Ox 09/06/21 08:38 70 137/85 09/06/21 06:37 36.9 C 55 L 16 111/69 97 09/06/21 02:48 36.9 C 78 16 110/74 95 Laboratory Results Laboratory Results WBC 13.20 K/uL (4.8-10.8) H 09/06/21 06:00 RBC 4.61 M/uL (4.2-5.4) 09/06/21 06:00 Hgb 13.7 g/dL (12.0-16.0) 09/06/21 06:00 Hct 40.6 % (37-47) 09/06/21 06:00 MCV 88.1 fL (80-100) 09/06/21 06:00 MCH 29.7 pg (25-34) 09/06/21 06:00 MCHC 33.7 g/dL (32-36) 09/06/21 06:00 RDW Std Deviation 43.1 fL (36.4-46.3) 09/06/21 06:00 RDW Coeff of Pete 13.3 % (11.5-14.5) 09/06/21 06:00 Plt Count 363 K/uL (130-400) 09/06/21 06:00 MPV 9.8 fL (7.4-10.4) 09/06/21 06:00 Immature Gran % (Auto) 0.3 % 09/06/21 06:00 Neut % (Auto) 85.2 % 09/06/21 06:00 Lymph % (Auto) 9.6 % 09/06/21 06:00 [place] % (Auto) 4.8 % 09/06/21 06:00 Eos % (Auto) 0.0 % 09/06/21 06:00 Baso % (Auto) 0.1 % 09/06/21 06:00 Neut # (Auto) 11.25 K/uL (1.4-6.5) H 09/06/21 06:00 Lymph # (Auto) 1.27 K/uL (1.2-3.4) 09/06/21 06:00 [place] # (Auto) 0.63 K/uL (0.11-0.59) H 09/06/21 06:00 Eos # (Auto) 0.00 K/uL (0-0.5) 09/06/21 06:00 Baso # (Auto) 0.01 K/uL (0-0.2) 09/06/21 06:00 Immature Gran # (Auto) 0.04 K/uL (0.00-0.02) H 09/06/21 06:00 Sodium 138 mmol/L (136-145) 09/06/21 06:00 Potassium 3.8 mmol/L (3.5-5.1) 09/06/21 06:00 Chloride 104 mmol/L (98-107) 09/06/21 06:00 Carbon Dioxide 27 mmol/L (21-32) 09/06/21 06:00 Anion Gap 7 (3-11) 09/06/21 06:00 BUN 12 mg/dl (6-23) 09/06/21 06:00 Creatinine 0.84 mg/dl (0.6-1.2) 09/06/21 06:00 Est Cr Clr Drug Dosing 77.5 ml/min 09/06/21 06:00 Est GFR ( Amer) 92.6 ml/min 09/06/21 06:00 Est GFR (Non-Af Amer) 79.9 ml/min 09/06/21 06:00 BUN/Creatinine Ratio 14.3 (10-20) 09/06/21 06:00 Glucose 119 mg/dl (70-99(Fasting)) H 09/06/21 06:00 Calcium 9.5 mg/dl (8.5-10.1) 09/06/21 06:00 SARS-CoV-2, RNA, NAAT NEGATIVE (NEGATIVE) 09/05/21 11:29 Impressions Shoulder X-Ray 09/05/21 17:20 LEFT SHOULDER 2 VIEWS CLINICAL HISTORY: Postoperative examination. FINDINGS: 2 portable views of the left shoulder are obtained. No prior studies are available for comparison at the time of dictation. A left shoulder arthroplasty is in near-anatomic alignment. No acute fracture is seen. Skin clips, soft tissue edema, subcutaneous gas, and a surgical drain overlying the left shoulder are expected postoperative findings. The acromioclavicular joint is maintained. Midline sternotomy wires are noted. Visualized left lung parenchy ma appears clear. IMPRESSION: Expected postoperative findings status post left shoulder arthroplasty. No acute fracture is seen. Electronically signed by: Billy Duffy M.D. 09/05/2021 5:39 PM
--- NOTE | 2021-09-11 09:19 | Discharge Summary ---
Date of Service September 11, 2021 Admission HPI Per Admitting Provider 51-year-old female with past medical history significant for ID status post bypass surgery, coronary artery disease, MACK, GERD, emphysema who presents with ongoing left shoulder pain. Patient has failed conservative measures including injections and anti-inflammatories. Pain is interfering with her daily activities. She would like to proceed with surgical intervention. Patient denies headaches, sweats, fevers, chills, double vision, blurred vision, cough, sore throat, dysphagia, chest pain, sob, wheezing, n/v/d/c, numbness, tingling, fatigue, urinary symptoms, mood disorders. ROS positive for left shoulder pain and stiffness. Admission Exam Per Admitting Provider Physical Exam Constitutional: well developed and well nourished; no acute distress Eyes: PERRL, conjunctivae normal, anicteric sclerae ENMT: external ear and nose normal, oropharynx normal Neck: trachea midline, no thyromegaly Respiratory: normal respiratory effort, lungs clear to auscultation Cardiovascular: RRR, no murmur, no edema Musculoskeletal: Left shoulder: Tenderness anterior glenoid and biceps. There is crepitation noted. She has positive impingement signs, positive cross body test. Active abduction to 170 degrees, forward flexion to 170 degrees, external rotation is 60 degrees. Pain and weakness with strength testing. Skin: no rashes, warm and dry Neurologic: patellar DTR's 2+ bilat, sensation intact Psychiatric:M A+Ox3, euthymic affect Principal Diagnosis Left Shoulder Osteoarthritis Discharge Data Allergies Allergy/AdvReac Type Severity Reaction Status Date / Time Penicillins Allergy Unknown PT NOT SURE Verified 09/05/21 11:45 Consultations 09/03/21 12:59 Consult Hospitalist Routine Procedures Performed Operation Date: 09/05/21 14:15 Actual Procedures p Left Total Shoulder Arthroplasty, Biceps Tenodesis - Rosendo Kumari MD Ordered Studies 09/05/21 05:00 US - OR guided needle placemen Routine Hospital Course (1) Primary osteoarthritis, left shoulder: Patient:HOANG TOMAS Admit Date:09/05/21 MR#:[id number] Att Phy:Rosendo Kumari M.D. Acct ID:[id number] Lacie Phy:Jovanny Awad PA-C Date:1970 Fam Phy: Age:51 Location:3E Sex:F Room/Bed:E322-1 cc: ~ *NOTICE TO RECEIVING [employer]/AGENCY This information is strictly Confidential and protected under [place] law. [place] law prohibits you from making any further disclosure of this information unless further disclosure is expressly permitted by the written consent of the person to whom it pertains or is authorized by law. A general authorization for the release of medical or other information is not sufficient for this purpose. Hospital accepts no responsibility if the information is made available to any other person, INCLUDING THE PATIENT. Date of Service September 06, 2021 Assessment & Plan (1) Primary osteoarthritis, left shoulder: Plan: Postop day 1 status post left total shoulder arthroplasty. PT/OT protocols. Nonweightbearing left upper extremity. DVT prophylaxis-aspirin p.o. daily, SCDs Pain management as written. DC planning-patient is planning for outpatient PT upon discharge. Plan for discharge to home today. Admission and Anticipated Discharge Date Admission Date: September 05, 2021 Subjective POD 1 Patient sitting up at the bedside. No complaints this morning. Pain is controlled. Denies shortness of breath, chest pain, lightheadedness. She is hoping to go home today. Physical Exam Physical Exam: Sling is in place. Dressings are clean, dry, and intact. She has good range of motion of her left wrist and fingers. She has some slight tingling left in her fingers at this time but states most of the sensation has returned to her fingers. Capillary refill is less than 2 seconds. Minimal drainage from the Hemovac. Results & Data ([facility]) Vital Signs (Past 12 Hours) Vital Signs Temp Pulse Resp BP Pulse Ox 09/06/21 06:37 36.9 C 55 L 16 111/69 97 09/06/21 02:48 36.9 C 78 16 110/74 95 09/05/21 21:58 36.4 C L 53 L 16 140/81 95 Laboratory Results Laboratory Results WBC 13.20 K/uL (4.8-10.8) H 09/06/21 06:00 RBC 4.61 M/uL (4.2-5.4) 09/06/21 06:00 Hgb 13.7 g/dL (12.0-16.0) 09/06/21 06:00 Hct 40.6 % (37-47) 09/06/21 06:00 MCV 88.1 fL (80-100) 09/06/21 06:00 MCH 29.7 pg (25-34) 09/06/21 06:00 MCHC 33.7 g/dL (32-36) 09/06/21 06:00 RDW Std Deviation 43.1 fL (36.4-46.3) 09/06/21 06:00 RDW Coeff of Pete 13.3 % (11.5-14.5) 09/06/21 06:00 Plt Count 363 K/uL (130-400) 09/06/21 06:00 MPV 9.8 fL (7.4-10.4) 09/06/21 06:00 Immature Gran % (Auto) 0.3 % 09/06/21 06:00 Neut % (Auto) 85.2 % 09/06/21 06:00 Lymph % (Auto) 9.6 % 09/06/21 06:00 [place] % (Auto) 4.8 % 09/06/21 06:00 Eos % (Auto) 0.0 % 09/06/21 06:00 Baso % (Auto) 0.1 % 09/06/21 06:00 Neut # (Auto) 11.25 K/uL (1.4-6.5) H 09/06/21 06:00 Lymph # (Auto) 1.27 K/uL (1.2-3.4) 09/06/21 06:00 [place] # (Auto) 0.63 K/uL (0.11-0.59) H 09/06/21 06:00 Eos # (Auto) 0.00 K/uL (0-0.5) 09/06/21 06:00 Baso # (Auto) 0.01 K/uL (0-0.2) 09/06/21 06:00 Immature Gran # (Auto) 0.04 K/uL (0.00-0.02) H 09/06/21 06:00 Sodium 138 mmol/L (136-145) 09/06/21 06:00 Potassium 3.8 mmol/L (3.5-5.1) 09/06/21 06:00 Chloride 104 mmol/L (98-107) 09/06/21 06:00 Carbon Dioxide 27 mmol/L (21-32) 09/06/21 06:00 Anion Gap 7 (3-11) 09/06/21 06:00 BUN 12 mg/dl (6-23) 09/06/21 06:00 Creatinine 0.84 mg/dl (0.6-1.2) 09/06/21 06:00 Est Cr Clr Drug Dosing 77.5 ml/min 09/06/21 06:00 Est GFR ( Amer) 92.6 ml/min 09/06/21 06:00 Est GFR (Non-Af Amer) 79.9 ml/min 09/06/21 06:00 BUN/Creatinine Ratio 14.3 (10-20) 09/06/21 06:00 Glucose 119 mg/dl (70-99(Fasting)) H 09/06/21 06:00 Calcium 9.5 mg/dl (8.5-10.1) 09/06/21 06:00 SARS-CoV-2, RNA, NAAT NEGATIVE (NEGATIVE) 09/05/21 11:29 Impressions Shoulder X-Ray 09/05/21 17:20 LEFT SHOULDER 2 VIEWS CLINICAL HISTORY: Postoperative examination. FINDINGS: 2 portable views of the left shoulder are obtained. No prior studies are available for comparison at the time of dictation. A left shoulder arthroplasty is in near-anatomic alignment. No acute fracture is seen. Skin clips, soft tissue edema, subcutaneous gas, and a surgical drain overlying the left shoulder are expected postoperative findings. The acromioclavicular joint is maintained. Midline sternotomy wires are noted. Visualized left lung parenchyma appears clear. IMPRESSION: Expected postoperative findings status post left shoulder arthroplasty. No acute fracture is seen. Electronically signed by: Billy Duffy M.D. 09/05/2021 5:39 PM Total Time Total Time Spent Total Time Spent (In Minutes): 5 Discharge Plan Discharge Items Patient Disposition: Home - Self-Care Reason For Visit: Left Shoulder Osteoarthritis Discharge Diagnosis: Left shoulder osteoarthritis Activity: Per Instructions section Weightbearing: Left non-weightbearing Weightbearing Comment: Use sling at all times. May remove for changing clothes or bathing Non-emergency contact: Surgeon Call non-emergency contact if: your pain is not controlled, your temperature is above 101.5 and your wound has increased redness Follow-up/Referrals: Rosendo Kumari MD [Surgeon] - (Follow-up with Dr. Kumari his PA in 2 weeks. Please call for an appointment if 1 has not been already scheduled for you. [phone]) Jovanny Awad PA-C [Primary Care Provider] - Diet: Heart Healthy Addtl Attending Provider Instructions: ACTIVITY RECOMMENDATIONS: SELF CARE INSTRUCTIONS AFTER TOTAL SHOULDER ARTHROPLASTY A. You may do daily exercises as taught in physical therapy while in hospital. No lifting with the operative arm. Please schedule your outpatient physical therapy appointment to begin within 2-3 days after leaving the hospital. Specific restrictions will be written on your physical therapy prescription that is provided to you. B. You are to wear your sling/immobilizer at all times EXCEPT when performing your daily exercises, participating in physical therapy and for hygiene pur poses. C. You may perform dry, daily dressing changes. Please keep your incision covered. You may shower 48 hours after surgery. Do not apply soap or any ointment/lotions directly over incision. Do not soak incision in bath tub/swimming pool. D. You may use ice as needed to operative shoulder. SPECIAL CARE INSTRUCTIONS: MEDICATION INSTRUCTIONS: *It is recommended you take Aspirin 325mg daily for four weeks post-op. VERY IMPORTANT TO READ AND REVIEW A. There are a few signs you need to watch for after you are home. Call [facility] at [phone] if you experience any of the followin. Increased severe shoulder pain. Some pain is expected especially when you exercise. 2. Increased swelling in you shoulder or arm; pain or swelling in either upper extremity. 3. Any fluid drainage from the incision. 4. Shortness of breath or chest pain. B. Please call [facility] at [phone] if you have any questions or concerns about your operation or recovery. C. Call your physician if: 1. Temperature is greater than 101 degrees (F). 2. Pain is not relieved by prescribed pain medications. 3. Increase drainage or redness from incision. 4. Unanswered questions or concerns. FOLLOW UP VISIT: Please call [facility] at [phone] to schedule a follow up appointment with Dr. Kumari or his PA in 12-14 days from your surgery date. Stand-Alone Forms: [employer], Smoking Cessation Medications and DC Order Prescriptions: New acetaminophen [Tylenol Extra Strength] 500 mg Tablet 1,000 mg PO Q8 14 Days Qty: 84 RF: 0 polyethylene glycol 3350 [Miralax] 17 gram powder in packet 17 g PO DAILY PRN (Reason: constipation) Qty: 5 RF: 0 oxycodone 5 mg Tablet 5 mg PO Q4H MDD 6 PRN (Reason: pain) Qty: 30 RF: 0 Continued atorvastatin [Lipitor] 80 mg Tablet 80 mg PO HS RF: 0 aspirin 81 mg Tablet,Delayed Release (Dr/Ec) 81 mg PO QAM RF: 0 nitroglycerin 0.4 mg Tablet, Sublingual 0.4 mg sublingual UD PRN (Reason: Chest Pain) RF: 0 omeprazole 20 mg Capsule,Delayed Release(Dr/Ec) 20 mg PO QAM RF: 0 mupirocin 2 % Ointment 1 applic TOPICAL UD PRN (Reason: INFECTION ON FACE) RF: 0 multivitamin Capsule 1 cap PO QAM RF: 0 metoprolol tartrate 25 mg Tablet 25 mg PO BID RF: 0 duloxetine [Cymbalta] 60 mg Capsule,Delayed Release(Dr/Ec) 60 mg PO QAM RF: 0 gabapentin 400 mg Tablet 400 mg PO TID RF: 0 Probiotic 3 billion cell Capsule 3,000 mmu cells PO QAM RF: 0 Discontinued turmeric 400 mg Capsule 500 mg PO QAM RF: 0 Discharge Orders: Discharge Order (Routine); Ordered 09/06/21 Ordered By: Brandon Carr/Other Patient Handouts: Shoulder Replace Home Recovery, Shoulder Replacement Surg Recovery Admission Data Admit Date/Time: 09/05/21 17:20 Attending Provider: Rosendo Kumari Admit Provider: Rosendo Kumari Primary Care Provider: Jovanny Awad Other Providers: Artur Castaneda Other Interventions: Discharge Summary Assessment (RN) Last Done: 09/06/21 11:32
== END 2021-09-06 12:14 | disposition home or self-care (01) | DRG 483 ==
LOC: ASU 11:09 → 3E 17:20